=== PATIENT | female | born 1995 | race Caucasian/White ===

== ENCOUNTER 2017-08-04 14:04 | Outpatient (CLI) | END 2017-08-04 21:50 | disposition home or self-care (01) ==

== ENCOUNTER 2017-08-07 09:59 | Outpatient (CLI) | END 2017-08-07 12:03 | disposition home or self-care (01) ==

== ENCOUNTER 2017-08-10 12:50 | Outpatient (CLI) | END 2017-08-10 18:10 | disposition home or self-care (01) ==

== ENCOUNTER 2017-08-14 17:57 | Outpatient (CLI) | END 2017-08-14 23:11 | disposition home or self-care (01) ==

== ENCOUNTER 2017-08-28 04:55 | Inpatient (IN) | END 2017-08-31 16:45 | disposition home or self-care (01) | DRG 766 ==